=== PATIENT | male | born 1995 | race Caucasian/White ===

== ENCOUNTER 2018-07-16 11:59 | Emergency (ER) | payer OTHER ==
[2018-07-16 12:09] VITALS: Ht 167.6 cm
[2018-07-16 15:26] VITALS: BP 119/73
== END 2018-07-16 15:26 | disposition home or self-care (01) ==
LOC: ED 11:59
DX: M54.5 Low back pain (principal); M79.604 Pain in right leg; F17.210 Nicotine dependence, cigarettes, uncomplicated

== ENCOUNTER 2020-02-26 14:41 | Emergency (ER) | payer OTHER ==
[~2020-02-26] VITALS: Ht 167.6 cm; Wt 69.9 kg
[2020-02-26 14:52] VITALS: BP 123/81; Ht 167.6 cm; Wt 69.9 kg
== END 2020-02-26 15:44 | disposition home or self-care (01) ==
LOC: ED 14:41
DX: S51.831A Puncture wound without foreign body of right forearm, initial encounter (principal); L03.113 Cellulitis of right upper limb; W57.XXXA Bitten or stung by nonvenomous insect and other nonvenomous arthropods, initial encounter; Y93.89 Activity, other specified; Y92.89 Other specified places as the place of occurrence of the external cause; Y99.8 Other external cause status